=== PATIENT | female | born 1960 | race Caucasian/White ===

== ENCOUNTER 2017-04-13 12:15 | Emergency (ER) | payer SELFPAY ==
--- NOTE | 2017-04-13 12:47 | ER Document Report ---
ED Medical Screen (RME) - General Chief Complaint: Abdominal Swelling Stated Complaint: ABDOMINAL SWELLING Time Seen by Provider: 04/13/17 12:46 Notes: Patient states that she just moved here from [place] and does not have a physician. She states she has been diagnosed with cirrhosis but does not currently take any medications. She states she has had no problems with her cirrhosis in the last 2 years. However she states over the last several weeks she has been "swelling". She states she has a lot of abdominal distention and is now gone into her legs. She denies specifically abdominal pain. No vomiting or diarrhea. No problems with urination. She has had one previous paracentesis. - Related Data Allergies/Adverse Reactions: No Known Allergies Allergy (Verified 04/13/17 12:32) Past Medical History - Social History Chew tobacco use (# tins/day): No Frequency of alcohol use: Rare Drug Abuse: None Renal/ Medical History: Denies: Hx Peritoneal Dialysis Physical Exam - Vital signs Vitals: Temp Pulse Resp BP Pulse Ox 98.7 F 116 H 16 126/77 H 99 04/13/17 12:23 04/13/17 12:23 04/13/17 12:23 04/13/17 12:23 04/13/17 12:23 Course - Vital Signs Vital signs: Temp Pulse Resp BP Pulse Ox 98.7 F 116 H 16 126/77 H 99 04/13/17 12:23 04/13/17 12:23 04/13/17 12:23 04/13/17 12:23 04/13/17 12:23
[2017-04-13 13:18] LABS: ABSOLUTE LYMPHOCYTES (AUTO) 0.2 10^3/uL (0.5-4.7); ABSOLUTE MONOCYTES (AUTO) 0.2 10^3/uL (0.1-1.4); ABSOLUTE NEUT (AUTO) 2.4 10^3/uL (1.7-8.2); BASOPHILS % (AUTO) 0.6 % (0-2); EOSINOPHILS % (AUTO) 1.1 % (0-6); HEMATOCRIT 42.3 % (36.0-47.0); HEMOGLOBIN 14.3 g/dL (12.0-15.5); LYMPHOCYTES % (AUTO) 6.7 % (13-45); MEAN CORPUSCULAR HEMOGLOBIN 32.2 pg (27.0-33.4); MEAN CORPUSCULAR HGB CONC 33.7 g/dL (32.0-36.0); MEAN CORPUSCULAR VOLUME 96 fl (80-97); PLATELET COUNT 220 10^3/uL (150-450); RED BLOOD COUNT 4.43 10^6/uL (3.72-5.28); RED CELL DISTRIBUTION WIDTH 14.6 % (11.5-14.0); SEGMENTED NEUTROPHILS % (AUTO) 83.6 % (42-78); TOTAL CELLS COUNTED % (AUTO) 100 %; WHITE BLOOD COUNT 2.8 10^3/uL (4.0-10.5)
[2017-04-13 13:31] LABS: ALANINE AMINOTRANSFERASE 53 U/L (9-52); ALBUMIN 2.1 g/dL (3.5-5.0); ALKALINE PHOSPHATASE 83 U/L (38-126); ASPARTATE AMINO TRANSFERASE 50 U/L (14-36); BILIRUBIN,DIRECT 0.2 mg/dL (0.0-0.4); BILIRUBIN,TOTAL 0.2 mg/dL (0.2-1.3); BLOOD UREA NITROGEN 7 mg/dL (7-20); CALCIUM 7.9 mg/dL (8.4-10.2); CHLORIDE 108 mmol/L (98-107); GLUCOSE 106 mg/dL (75-110); POTASSIUM 3.8 mmol/L (3.6-5.0)
[2017-04-13 13:39] LABS: CARBON DIOXIDE 29 mmol/L (22-30); SODIUM 139.4 mmol/L (137-145)
[2017-04-13 13:42] LABS: ANION GAP 2 (5-19)
--- NOTE | 2017-04-13 14:45 | RADIOLOGY REPORT (SQ) ---
EXAM DESCRIPTION: U/S ABDOMEN LIMITED W/O DOP COMPLETED DATE/TIME: 04/13/2017 2:30 pm REASON FOR STUDY: evaluate ascites COMPARISON: None. TECHNIQUE: 4 quadrant abdominal ultrasound was performed to evaluate ascites LIMITATIONS: None. FINDINGS: Small amount of ascites is seen in the right upper quadrant and left upper quadrant. No r ight lower quadrant or left lower quadrant fluid. IMPRESSION: Small amount of upper abdominal ascites TECHNICAL DOCUMENTATION: JOB ID: [id number] [employer]- All Rights Reserved Reading location - IP/workstation name: [email or web address]
[2017-04-13 14:47] LABS: APPEARANCE,URINE CLOUDY; BILIRUBIN,URINE NEGATIVE (NEGATIVE); GLUCOSE, URINE NEGATIVE (NEGATIVE); KETONES,URINE NEGATIVE (NEGATIVE); LEUKOCYTE ESTERASE,URINE NEGATIVE (NEGATIVE); NITRITE,URINE NEGATIVE (NEGATIVE); PROTEIN,URINE NEGATIVE (NEGATIVE); URINE SPECIFIC GRAVITY 1.019; UROBILINOGEN,URINE NEGATIVE mg/dL (<2.0)
[2017-04-13 14:48] LABS: COLOR,URINE YELLOW
--- NOTE | 2017-04-13 15:09 | ER Document Report ---
ED GI/ - General Chief Complaint: Abdominal Swelling Stated Complaint: ABDOMINAL SWELLING Time Seen by Provider: 04/13/17 12:46 Mode of Arrival: Ambulatory Information source: Patient Notes: 56 yo female with 2 year hx cirrhosis has increased abd. swelling and lower leg swelling for 3 weeks. Used to be on directics, none in 6 months. 3 glasses of wine last weekend. No chest pain, sob, abd pain, diarrhea, nausea or vomiting. - Related Data Allergies/Adverse Reactions: No Known Allergies Allergy (Verified 04/13/17 12:32) Past Medical History - General Information source: Patient - Social History Smoking Status: Never Smoker Chew tobacco use (# tins/day): No Frequency of alcohol use: Rare Drug Abuse: None Lives with: Spouse/Significant other Family History: Reviewed & Not Pertinent Patient has suicidal ideation: No Patient has homicidal ideation: No Renal/ Medical History: Denies: Hx Peritoneal Dialysis GI Medical History: Reports: Other - cirrhosis Surgical Hx: Negative Review of Systems - Review of Systems Constitutional: No symptoms reported EENT: No symptoms reported Cardiovascular: No symptoms reported Respiratory: No symptoms reported Gastrointestinal: See HPI Genitourinary: No symptoms reported Female Genitourinary: No symptoms reported Musculoskeletal: See HPI Skin: No symptoms reported Hematologic/Lymphatic: No symptoms reported Neurological/Psychological: No symptoms reported Physical Exam - Vital signs Vitals: Temp Pulse Resp BP Pulse Ox 98.7 F 116 H 16 126/77 H 99 04/13/17 12:23 04/13/17 12:23 04/13/17 12:23 04/13/17 12:23 04/13/17 12:23 Interpretation: Normal - General General appearance: Appears well, Alert - HEENT Head: Normocephalic, Atraumatic Eyes: Normal. No: Scleral icterus Pupils: PERRL Neck: Supple. No: Lymphadenopathy - Respiratory Respiratory status: No respiratory distress Chest status: Nontender Breath sounds: Normal Chest palpation: Normal - Cardiovascular Rhythm: Regular Heart sounds: Normal auscultation Murmur: No - Abdominal Inspection: Normal Distension: Tympanitic - upper, Fluid wave Bowel sounds: Normal Tenderness: Nontender Organomegaly: No organomegaly - Back Back: Normal, Nontender. No: CVA tenderness - Extremities General upper extremity: Normal inspection, Nontender, Normal color, Normal ROM , Normal temperature General lower extremity: Nontender, Edema - pitting blateral lower legs, Normal color, Normal ROM, Normal weight bearing, Other - 2+ nathalie dp. No: Van's sign - Neurological Neuro grossly intact: Yes Cognition: Normal Orientation: AAOx4 Arti Coma Scale Eye Opening: Spontaneous Arti Coma Scale Verbal: Oriented Arti Coma Scale Motor: Obeys Commands [place] Coma Scale Total: 15 Speech: Normal Motor strength normal: LUE, RUE, LLE, RLE Sensory: Normal - Psychological Associated symptoms: Normal affect, Normal mood - Skin Skin Temperature: Warm Skin Moisture: Dry Skin Color: Normal Course - Re-evaluation Re-evalutation: 04/13/17 15:[address] Holguin for disposition and we will start on Spironolactone 50 mg daily and Lasix 20 mg daily since a low volume ascites. I will have her refer to family practice and a shrub planter. 04/14/17 19:22 - Vital Signs Vital signs: Temp Pulse Resp BP Pulse Ox 98.7 F 90 18 125/80 100 04/13/17 16:22 04/13/17 16:22 04/13/17 16:22 04/13/17 16:22 04/13/17 16:22 - Laboratory Result Diagrams: 04/13/17 12:55 04/13/17 12:55 Laboratory results interpreted by me: 04/13/17 04/13/17 12:55 12:55 WBC 2.8 L RDW 14.6 H Seg Neutrophils % 83.6 H Lymphocytes % 6.7 L Absolute Lymphocytes 0.2 L Chloride 108 H Anion Gap 2 L Calcium 7.9 L AST 50 H ALT 53 H Total Protein 4.0 L Albumin 2.1 L Discharge - Discharge Clinical Impression: small amount ascites, Peripheral edema, Hx of cirrhosis, Hypoalbuminemia Condition: Good Disposition: HOME, SELF-CARE Instructions: Aldactone (Spironolactone) ([facility]), Cirrhosis ([facility]), Diuretic ([facility]) , Lasix, Liver Function Abnormality ([facility]) Additional Instructions: low sodium diet bannana daily 2 diurectics ordered daily see liver specialist/shrub planter to er if abd pain, chest pain, shortness of breath no wine or alcohol see family practice doctor of your choice Prescriptions: Furosemide [Lasix 20 mg Tablet] 20 mg PO QAM #30 tablet Spironolactone 50 mg PO DAILY #30 tablet Referrals: DAVONTE LAWRENCE MD [ACTIVE STAFF] - Follow up in 1 week
--- NOTE | 2017-04-13 16:01 | RADIOLOGY REPORT (SQ) ---
EXAM DESCRIPTION: ACUTE ABDOMEN SERIES COMPLETED DATE/TIME: 04/13/2017 3:23 pm REASON FOR STUDY: abdominal swelling COMPARISON: None. NUMBER OF VIEWS: Three views. TECHNIQUE: Frontal chest, supine abdomen and upright/decubitus abdomen radiographic images acquired. LIMITATIONS: None. FINDINGS: CHEST: Lungs clear of infiltrates. FREE AIR: None. No abnormal gas collections. BOWEL GAS PATTERN: Nonobstructive pattern. No dilated loops or air fluid levels. CALCIFICATIONS: No suspicious calcifications. HARDWARE: None in the abdomen. SOFT TISSUES: No gross mass or suggestion of organomegaly. BONES: No acute fracture. No worrisome bone lesions. OTHER: No other significant finding. IMPRESSION: NO RADIOGRAPHIC EVIDENCE FOR ACUTE ABDOMINAL DISEASE. TECHNICAL DOCUMENTATION: JOB ID: [id number] [employer]- All Rights Reserved Reading location - IP/workstation name: [email or web address]
[2017-04-13 16:25] VITALS: BP 125/80
== END 2017-04-13 16:22 | disposition home or self-care (01) ==
LOC: ER 12:15
DX: R18.8 Other ascites (principal); E88.09 Other disorders of plasma-protein metabolism, not elsewhere classified; Z87.19 Personal history of other diseases of the digestive system
CPT/HCPCS: 36415; 74022; 76705; 80053; 81001; 85025; 99284

== ENCOUNTER 2019-08-20 11:30 | Emergency (ER) | payer SELFPAY ==
[2019-08-20 12:14] LABS: HEMATOCRIT 37.2 % (36.0-47.0); HEMOGLOBIN 12.6 g/dL (12.0-15.5); MEAN CORPUSCULAR HEMOGLOBIN 34.3 pg (27.0-33.4); MEAN CORPUSCULAR HGB CONC 33.9 g/dL (32.0-36.0); MEAN CORPUSCULAR VOLUME 101 fl (80-97); RED BLOOD COUNT 3.68 10^6/uL (3.72-5.28); RED CELL DISTRIBUTION WIDTH 14.6 % (11.5-14.0); WHITE BLOOD COUNT 4.7 10^3/uL (4.0-10.5)
[2019-08-20 12:15] LABS: INTERNATIONAL RATION (INR) 1.01; PROTHROMBIN TIME 13.3 SEC (11.4-15.4)
[2019-08-20 12:41] LABS: CREATINE KINASE MB 0.57 ng/mL (<4.55)
[2019-08-20 12:42] LABS: ABSOLUTE LYMPHOCYTES# (MANUAL) 0.2 10^3/uL (0.5-4.7); ABSOLUTE MONOCYTES # (MANUAL) 0.3 10^3/uL (0.1-1.4); BAND NEUTROPHILS % (MANUAL) 2 % (3-5); BASOPHILS % (MANUAL) 0 % (0-2); EOSINOPHILS % (MANUAL) 0 % (0-6); LYMPHOCYTES % (MANUAL) 2 % (13-45); MONOCYTES % (MANUAL) 7 % (3-13); SEGMENTED NEUTROPHILS % (MAN) 87 % (42-78); TOTAL CELLS COUNTED 100
[2019-08-20 12:45] LABS: TROPONIN I < 0.012 ng/mL
[2019-08-20 12:46] LABS: ANISOCYTOSIS SLIGHT
[2019-08-20 12:48] LABS: POLYCHROMASIA SLIGHT
[2019-08-20 12:49] LABS: PLATELET CLUMPS PRESENT; PLATELET COMMENT ADEQUATE
[2019-08-20 12:50] LABS: PLATELET COUNT 256 10^3/uL (150-450)
--- NOTE | 2019-08-20 13:12 | EKG REPORT ---
SEVERITY:- OTHERWISE NORMAL ECG - SINUS TACHYCARDIA LOW VOLTAGE IN FRONTAL LEADS : Confirmed by: Tio Marion MD 20-Aug-2019 13:11:07
[2019-08-20 14:32] LABS: ALKALINE PHOSPHATASE 94 U/L (38-126); ASPARTATE AMINO TRANSFERASE 38 U/L (14-36); BILIRUBIN,TOTAL 0.4 mg/dL (0.2-1.3); BLOOD UREA NITROGEN 11 mg/dL (7-20); CALCIUM 7.7 mg/dL (8.4-10.2); GLUCOSE 111 mg/dL (75-110); POTASSIUM 3.9 mmol/L (3.6-5.0); TOTAL PROTEIN 4.3 g/dL (6.3-8.2)
--- NOTE | 2019-08-20 14:35 | ER Document Report ---
ED General - General Chief Complaint: Edema Stated Complaint: SWELLING Time Seen by Provider: 08/20/19 14:13 - HPI Notes: Patient is a 58-year-old female with a known history of cirrhosis, who presents to the emergency department for evaluation of increased edema and swelling. She has been on Lasix and Aldactone "for years." She states she ran out of it about a month ago, was out of it for about 2 and half weeks. She states her swelling worsened significantly during that course of time, but she is been back on the medications and really has not had any improvement. She states she is also bruising more easily. She states her urine seems to be darker. She denies any pain. She really states she is not particularly short of breath. She denies any chest pain. No coughing. No abdominal pain. No fevers or chills. No nausea or vomiting. She is eating and drinking normally. She has entirely given up alcohol. - Related Data Allergies/Adverse Reactions: No Known Allergies Allergy (Verified 04/13/17 12:32) Home Medications: Lasix, Spironolactone Past Medical History - General Information source: Patient - Social History Smoking Status: Never Smoker Family History: Reviewed & Not Pertinent - Medical History Medical History: Other - Portal vein thrombosis Renal/ Medical History: Denies: Hx Peritoneal Dialysis GI Medical History: Reports: Hx Cirrhosis Review of Systems - Review of Systems Cardiovascular: See HPI Gastrointestinal: See HPI -: Yes All other systems reviewed and negative Physical Exam - Vital signs Vitals: Temp Pulse Resp BP Pulse Ox 98.1 F 130 H 16 142/91 H 100 08/20/19 11:38 08/20/19 11:38 08/20/19 11:38 08/20/19 11:38 08/20/19 11:38 - Notes Notes: This is a 58-year-old female who appears her stated age, no acute distress. Vital signs reviewed, please refer to chart. Head is normocephalic, atraumatic. Pupils equal round, reactive to light. Neck is supple without meningismus. Heart is regular rate and rhythm. Lungs are clear to auscultation bilaterally. Abdomen is markedly distended with positive fluid wave, umbilical hernia that is soft and easily reduced, normoactive bowel sounds throughout. Extremities without cyanosis, clubbing. She has 3+ pitting edema to bilateral thighs and calves. Chronic skin changes of the lower legs noted. Posterior calves are nontender. Peripheral pulses are equal but diminished. Skin is warm and dry. Patient is awake, alert, neurological exam is nonfocal. Course - Re-evaluation Re-evalutation: 08/20/19 14:32 Patient presents to the emergency department for evaluation. She has significant anasarca, will likely need a paracentesis. Awaiting labs, particularly hepatic functions and PT/INR. Patient is currently stable. We will continue to monitor. 08/20/19 17:35 Patient's laboratory investigations were largely unremarkable. She tolerated the paracentesis well. She is currently getting her albumin. I will go ahead and give her a dose of 10 mg of IV Lasix while she is here, this will hopefully help with her peripheral edema. The importance of establishing care with a lead electrician, scheduling outpatient paracenteses, avoidance of alcohol, avoidance of Tylenol, and other chronic and appropriate treatments was discussed with the patient. She voiced understanding. She will call her primary care provider for follow-up. She is to return to the emergency department with worsening or new concerning symptoms of any sort. - Vital Signs Vital signs: Temp Pulse Resp BP Pulse Ox 98.1 F 130 H 16 142/91 H 100 08/20/19 11:38 08/20/19 11:38 08/20/19 11:38 08/20/19 11:38 08/20/19 11:38 - Laboratory Result Diagrams: 08/20/19 11:43 08/20/19 14:21 Laboratory results interpreted by me: 08/20/19 08/20/19 08/20/19 11:43 14:21 14:21 RBC 3.68 L MCV 101 H MCH 34.3 H RDW 14.6 H Seg Neuts % (Manual) 87 H Band Neutrophils % 2 L Lymphocytes % (Manual) 2 L Abs Lymphs (Manual) 0.2 L Sodium 131.5 L Anion Gap 4 L Glucose 111 H Calcium 7.7 L AST 38 H NT-Pro-B Natriuret Pep 188 H Total Protein 4.3 L Albumin 2.0 L - EKG Interpretation by Me Additional EKG results interpreted by me: 08/20/19 14:35 Sinus tachycardia with rate of 108 bpm. Normal axis and intervals. No acute ST changes concerning for ischemia or infarction. Discharge - Discharge Clinical Impression: Ascites Qualifiers: Ascites type: other type Qualified Code(s): R18.8 - Other ascites Condition: Stable Disposition: HOME, SELF-CARE Instructions: Cirrhosis ([facility]) Additional Instructions: You need to hold onto a associate professor of forestry or lead electrician. You need to have appointments set up for regular paracentesis, or drainage of the fluid on your abdomen. It is important that you take your medications as prescribed, avoid all alcohol, all Tylenol products. Follow-up with your primary care provider this week. If you develop worsening or new concerning symptoms of any sort, please return immediately to the emergency department for evaluation.
[2019-08-20 14:37] LABS: CARBON DIOXIDE 26 mmol/L (22-30); CHLORIDE 102 mmol/L (98-107)
[2019-08-20 14:40] LABS: ANION GAP 4 (5-19)
[2019-08-20 15:19] LABS: INTERNATIONAL RATION (INR) 1.01; PROTHROMBIN TIME 13.3 SEC (11.4-15.4)
[2019-08-20] MEDS: ALBUMIN HUMAN 12.5 GM/50 ML RTUINJ IV SCH ×4 (17:21→20:50)
[2019-08-20] MEDS ORDERED: FUROSEMIDE INJ/PF 20 MG/2 ML SDV IV ONE (17:35)
[2019-08-20 18:44] LABS: APPEARANCE,URINE CLEAR; BILIRUBIN,URINE NEGATIVE (NEGATIVE); COLOR,URINE YELLOW; GLUCOSE, URINE NEGATIVE (NEGATIVE); KETONES,URINE 20 mg/dL (NEGATIVE); LEUKOCYTE ESTERASE,URINE NEGATIVE (NEGATIVE); NITRITE,URINE NEGATIVE (NEGATIVE); PROTEIN,URINE NEGATIVE (NEGATIVE); URINE SPECIFIC GRAVITY 1.008; UROBILINOGEN,URINE NEGATIVE mg/dL (<2.0)
[2019-08-20 21:48] VITALS: BP 124/76
--- NOTE | 2019-08-21 08:37 | RADIOLOGY REPORT (SQ) ---
EXAM DESCRIPTION: U/S ABD PARACENTESIS IMAGES COMPLETED DATE/TIME: 08/20/2019 5:01 pm REASON FOR STUDY: cirrhosis, dyspnea COMPARISON 04/13/2017 LIMITATIONS: None. PROCEDURE: After obtaining informed consent, the patient was brought to the ultrasound suite. The p rocedure was performed with the patient on a gurney. Ultrasound was used to identify a prominent poc ket of ascites in the right lower quadrant. An appropriate access site was selected. The patient wa s prepped and draped in usual sterile fashion. The access site was anesthetized with 6 mL 1% lidoca ine. A [id number] needle was advanced into the fluid. After aspiration of fluid the needle, th e catheter was advanced off the needle into the fluid. A total of 10,000 mL of clear straw-colored f luid was removed. The patient tolerated the procedure well left the department in satisfactory condit ion. Skin closure with derma gatica IMPRESSION: Successful ultrasound-guided paracentesis COMMENT: Patient medication list reviewed: Yes- Quality ID# [id number]:Eligible professional attests to doc umenting in the medical record they obtained, updated, or reviewed the patient's current medications. TECHNICAL DOCUMENTATION: JOB ID: [id number] 2010 [employer]- All Rights Reserved Reading location - IP/workstation name: [email or web address]
== END 2019-08-20 21:46 | disposition home or self-care (01) ==
LOC: ER 11:30
DX: R18.8 Other ascites (principal)
CPT/HCPCS: 93005; 99285; 96374; 36415; 82553; 82962; 82550; 85025; 85610; 80053; 81001; 84484; 83880; 49083; 93010; P9047; J1940

== ENCOUNTER → 2019-09-20 | Outpatient (CLI) | payer SELFPAY ==
[2019-09-20 17:10] LABS: MEAN CORPUSCULAR HEMOGLOBIN 32.8 pg (27.0-33.4); MEAN CORPUSCULAR HGB CONC 33.4 g/dL (32.0-36.0); MEAN CORPUSCULAR VOLUME 98 fl (80-97); PLATELET COUNT 239 10^3/uL (150-450); RED BLOOD COUNT 3.98 10^6/uL (3.72-5.28); RED CELL DISTRIBUTION WIDTH 14.5 % (11.5-14.0); WHITE BLOOD COUNT 3.2 10^3/uL (4.0-10.5)
[2019-09-20 17:18] LABS: INTERNATIONAL RATION (INR) 0.94; PROTHROMBIN TIME 12.8 SEC (11.4-15.4)
== END ==
LOC: OD 16:23
PROVIDERS: ATTEND Internal Medicine Gastroenterology
DX: K70.31 Alcoholic cirrhosis of liver with ascites (principal)
CPT/HCPCS: 36415; 82105; 85027; 85610; 86038; 86235; 86256; 86704; 86705; 86706; 86707; 86803; 87340; 87350

== ENCOUNTER 2019-10-04 07:32 | Day surgery (SDC) | payer OTHER ==
[2019-10-04 08:11] LABS: HEMATOCRIT 38.1 % (36.0-47.0); HEMOGLOBIN 12.7 g/dL (12.0-15.5); MEAN CORPUSCULAR HGB CONC 33.4 g/dL (32.0-36.0); MEAN CORPUSCULAR VOLUME 96 fl (80-97); PLATELET COUNT 272 10^3/uL (150-450); RED BLOOD COUNT 3.98 10^6/uL (3.72-5.28); RED CELL DISTRIBUTION WIDTH 13.9 % (11.5-14.0); WHITE BLOOD COUNT 2.4 10^3/uL (4.0-10.5)
[2019-10-04 08:12] LABS: INTERNATIONAL RATION (INR) 0.91; PROTHROMBIN TIME 12.5 SEC (11.4-15.4)
[2019-10-04 08:13] LABS: PARTIAL THROMBOPLASTIN TIME 31.5 SEC (23.5-35.8)
[2019-10-04 08:27] LABS: BLOOD UREA NITROGEN 7 mg/dL (7-20)
[2019-10-04] MEDS ORDERED: ALBUMIN HUMAN 75 GM/300 ML RTUINJ IV PRN (08:30)
[2019-10-04 12:31] LABS: FLUID TYPE PERITONEAL
[2019-10-04 12:33] LABS: FLUID SOURCE ABDOMEN
[2019-10-04 12:35] LABS: FLUID APPEARANCE CLEAR; FLUID COLOR YELLOW; FLUID VISCOSITY LIQUID
[2019-10-04 14:11] VITALS: BP 122/80
--- NOTE | 2019-10-04 14:31 | RADIOLOGY REPORT (SQ) ---
EXAM DESCRIPTION: U/S ABD PARACENTESIS IMAGES COMPLETED DATE/TIME: 10/04/2019 11:52 am REASON FOR STUDY: ASCITES R18.8 OTHER ASCITES COMPARISON: 08/20/2019 paracentesis RADIATION DOSE: None LIMITATIONS: None. PROCEDURE: Procedure, risks, benefit, and alternative explained to patient who then gave written con sent. The left lower abdominal wall marked using ultrasound guidance. A time-out was called for cor rect marking verification. Abdomen prepped and draped using sterile technique. Local anesthesia achi eved using 5 ml of 1% lidocaine injection. A 6fr [id number]-Txiwcefa set was introduced into the periton eal cavity. Fluid was drained. The catheter was removed and entry site was covered with sterile ban dage. No immediate complications noted. Images acquired during the procedure were stored on PACS. FINDINGS: ENTRY SITE: left upper quadrant. FLUID VOLUME: 1,050 mL FLUID ANALYSIS: Straw-colored fluid OTHER: Fluid sent to the lab for testing. IMPRESSION: SUCCESSFUL ULTRASOUND GUIDED PARACENTESIS. COMMENT: Patient medication list reviewed:Yes- Quality ID# [id number]:Eligible professional attests to docu menting in the medical record they obtained, updated, or reviewed the patient's current medications. TECHNICAL DOCUMENTATION: JOB ID: [id number] 2010 [email or web address]- All Rights Reserved Reading location - IP/workstation name: [email or web address] [email or web address]
== END 2019-10-04 12:50 | disposition home or self-care (01) ==
LOC: RAD 07:32
PROVIDERS: ATTEND Internal Medicine Gastroenterology
DX: K70.31 Alcoholic cirrhosis of liver with ascites (principal); R00.0 Tachycardia, unspecified; R94.5 Abnormal results of liver function studies; Z79.899 Other long term (current) drug therapy
CPT/HCPCS: 36415; 84520; 82565; 85027; 85610; 85730; 89050; 82042; 88162; 49083; P9047

== ENCOUNTER → 2019-10-31 | Outpatient (CLI) | payer OTHER ==
[2019-10-31 12:41] LABS: ALBUMIN 3.4 g/dL (3.5-5.0); ALKALINE PHOSPHATASE 100 U/L (38-126); ANION GAP 6 (5-19); ASPARTATE AMINO TRANSFERASE 29 U/L (14-36); BILIRUBIN,DIRECT 0.3 mg/dL (0.0-0.4); BILIRUBIN,TOTAL 0.5 mg/dL (0.2-1.3); BLOOD UREA NITROGEN 14 mg/dL (7-20); CALCIUM 8.7 mg/dL (8.4-10.2); CARBON DIOXIDE 29 mmol/L (22-30); CHLORIDE 100 mmol/L (98-107); GLUCOSE 117 mg/dL (75-110); POTASSIUM 4.5 mmol/L (3.6-5.0); TOTAL PROTEIN 6.1 g/dL (6.3-8.2)
== END ==
LOC: OD 11:25
PROVIDERS: ATTEND Physician Assistant
DX: K70.31 Alcoholic cirrhosis of liver with ascites (principal)
CPT/HCPCS: 36415; 80048; 80076

== ENCOUNTER → 2020-03-11 | Outpatient (CLI) | payer OTHER ==
[2020-03-11 09:08] LABS: HEMATOCRIT 46.2 % (36.0-47.0); HEMOGLOBIN 15.7 g/dL (12.0-15.5); MEAN CORPUSCULAR HEMOGLOBIN 31.8 pg (27.0-33.4); MEAN CORPUSCULAR HGB CONC 33.9 g/dL (32.0-36.0); MEAN CORPUSCULAR VOLUME 94 fl (80-97); PLATELET COUNT 174 10^3/uL (150-450); RED BLOOD COUNT 4.93 10^6/uL (3.72-5.28); RED CELL DISTRIBUTION WIDTH 13.8 % (11.5-14.0); WHITE BLOOD COUNT 4.3 10^3/uL (4.0-10.5)
[2020-03-11 09:37] LABS: INTERNATIONAL RATION (INR) 1.03; PROTHROMBIN TIME 13.7 SEC (11.4-15.4)
[2020-03-11 09:39] LABS: ALBUMIN 2.1 g/dL (3.5-5.0); ALKALINE PHOSPHATASE 90 U/L (38-126); ANION GAP 6 (5-19); ASPARTATE AMINO TRANSFERASE 64 U/L (14-36); BILIRUBIN,DIRECT 0.2 mg/dL (0.0-0.4); BILIRUBIN,TOTAL 0.3 mg/dL (0.2-1.3); BLOOD UREA NITROGEN 7 mg/dL (7-20); CARBON DIOXIDE 27 mmol/L (22-30); CHLORIDE 98 mmol/L (98-107); GLUCOSE 100 mg/dL (75-110); POTASSIUM 3.6 mmol/L (3.6-5.0); TOTAL PROTEIN 4.3 g/dL (6.3-8.2)
[2020-03-11 09:54] LABS: CALCIUM 6.9 mg/dL (8.4-10.2)
== END ==
LOC: OD 08:27
PROVIDERS: ATTEND Internal Medicine Gastroenterology
DX: K70.31 Alcoholic cirrhosis of liver with ascites (principal)
CPT/HCPCS: 36415; 80053; 85027; 85610